=== PATIENT | female | born 1985 | race Caucasian/White ===

== ENCOUNTER 2017-04-05 08:44 | Emergency (ER) | payer OTHER ==
[~2017-04-05] VITALS: Ht 162.6 cm; Wt 81.2 kg
[~2017-04-05 08:44] MED LIST: ALBU18HF INH; ARIP5TAB5 PO; LORA-302 PO; VENL75CA PO; VENL75CA95 PO
[2017-04-05 08:56] VITALS: BP 145/103; PULSE 96; RESP 18; O2SAT 97
--- NOTE | 2017-04-05 09:06 | ED.REPORT ---
HPI-Psychiatric Illness Date of Service April 05, 2017 ED Provider: Pradip Scruggs MD Patient is a 31 year old female with a history of polysubstance abuse, depression, bipolar disorder and anxiety who presents to the ED due to depression. The patient reports she is currently out of Ativan and she normally takes it when she has episodes like these. Patient reports she has missed several appointments to get her prescription refilled. She denies suicidal ideations at this time but per the nurses notes had made suicidal comments earlier. The patient states that she hasn't been sleeping well because she has been living out of her car the past few weeks and she has had a decreased appetite. She states that her kids are with her mother because she "can't do this anymore". Patient reports that she is not currently using meth. Nursing Notes Stated Complaint: EMOTIONAL DISTRESS/ SUICIDAL Chief Complaint: Psychiatric Complaint Nursing Notes Reviewed: Yes (PlasmaSi,. meds not reconciled) Allergies: Coded Allergies: cetirizine (Verified Allergy, Severe, right side of body swells, 07/09/16) omeprazole (Verified Allergy, Intermediate, rash around stomach, 07/09/16) doxycycline (Verified Allergy, Unknown, 07/09/16) lithium (Verified Allergy, Unknown, 07/09/16) ranitidine (Verified Allergy, Unknown, edema face down to hip, 07/09/16) azithromycin (Verified Adverse Reaction, Severe, Diarrhea, 12/05/15) "severe diarrhea for a week that turned into intestinal infection" divalproex sodium (Verified Adverse Reaction, Severe, "psychotic, suicidal ", 12/05/15) erythromycin base (Verified Adverse Reaction, Severe, severe diarrhea, ) ziprasidone HCl (Verified Adverse Reaction, Severe, "psychotic, suicidal" , 12/05/15) zolpidem (Verified Adverse Reaction, Severe, "don't feel right", 11/16/15) Scheduled Aripiprazole (Abilify) 5 Mg Tablet 5 MG PO DAILY Aripiprazole (Abilify) 5 Mg Tablet 5 MG PO DAILY Venlafaxine ER (Effexor XR) 75 Mg Capsule 75 MG PO DAILY Venlafaxine ER (Venlafaxine ER) 75 Mg Cap.er.24h 75 MG PO DAILY Venlafaxine ER (Effexor XR) 75 Mg Capsule 75 MG PO DAILY Scheduled PRN Albuterol Sulfate (Ventolin HFA Inhaler) 200 Puff/18 Gm Inhaler 1 PUFF INH Q4 PRN PRN For Wheezing Lorazepam (Ativan) 0.5 Mg Tablet 0.5 MG PO TID PRN PRN For Anxiety or Agitation Lorazepam (Lorazepam) 0.5 Mg Tablet 0.5 MG PO BID PRN PRN For Anxiety General Time Seen by MD: 09:05 Chief Complaint Depressed Hx Obtained From: Patient Arrived By: Walk-in Context of Onset: Other (out of Ativan) Symptom Duration: Since onset Associated with: Reports: Anxiety Recent Healthcare: No recent doctor visit, No recent hospitalization Similar Sx Previous: Yes Risk-Psychiatric Illness Suicide Risk Stratification Suicide Risk Factors - Adult: : Prior psych admission (years ago): Substance abuse (relapse 2 weeks ago)No: Alcohol use RF Statements: Risk factors reviewed (but not predictive) Past Medical History Past Medical History Notes: Last [facility] admission 2008 for depressive disorder and polysubstance abuse Last ED visit June 2016 for depression and bipolar illness Past Medical History fibromyalgia h/o GERD h/o Interstitial cystitis h/o "Rheumatoid Arthritis" per EMR (not on PCP list of medical problems, not on medications) Depression Bipolar History of cervical intraepithelial neoplasia History of sleep apnea h/o migraines Past Surgical History Reports: Appendectomy Family History Noncontributory Smoking History Current Every Day Smoker Social History The EMR indicates previous history of polysubstance abuse including methamphetamines and cocaine hx homelessness Alcohol Use: "Social" Drug Use: Meth (has generally been clean past 1-2 years but reports relapsing ~ 2 weeks ago briefly), THC Other Social History: Good social support, Lives with children, Local resident Ambulatory Status Independent Review of Systems Review of Systems Note: decreased appetite Respiratory: Denies: Non-productive cough, Shortness of breath Psychiatric: Reports: Anxiety, Depression, Insomnia, Stress Complete sys rev & neg: except as marked. Physical Exam Initial Vital Signs Vital Signs (First) Date Time Temp Pulse Resp B/P Pulse Ox O2 Delivery O2 Flow Rate FiO2 04/05/17 08:56 37.0 96 18 145/103 97 Room Air Initial VS: Reviewed, Vital signs normal General/Constitutional: Awake, Alert does not appear intoxicated or in withdraw Neurologic: Oriented X3, Speech NL, No motor deficits, No sensory deficits Psychiatric: Not homicidal Abnormal Mood/Affect: Positive: Anxious, Depressed Abnormal Thinking / Perception: Positive: Insight abnormal, Judgment abnormal ( limited, but adequate (apparently made statements about SI, but states not actually SI, was upset)), Negative: Confused, Delusions - grandeur, Delusions - paranoid, Flight of ideas, Hallucinations, auditory, Hallucinations, tactile, Hallucinations, visual , Homicidal, no plan, Homicidal, with plan, Suicidal, no plan, Suicidal, with plan Tearful Head / Eyes: Atraumatic, Normocephalic, PERRL, EOMI Respiratory / Chest: Atraumatic, No respiratory distress Skin: Atraumatic, Color NL, No rash, Warm, Dry Upper Extremity / MS: Atraumatic, Full range of motion Interpretation & Diagnostics Lab Results Interpretation Test 04/05/17 09:25 Hold Urine Received (Received) Lab Results Interpretation: UA preg: negative Tox screen: positive for THC Re-Eval/Medical Decision Med Decision/Clinical Course This is a 31-year-old female for whom the initial report was that she was suicidal, but when I interview her she states she is not-she tells me that she has been under lots of stress recently, that usually she takes her medications which include Abilify, Effexor, and some when necessary lorazepam and that they usually help manage her symptoms, but that she missed her appointment with her PCP, and so is currently out of medications at the time of this increased stress. She apparently lives on the same property as her children who were apparently cared for bites of her guardians, and the patient is upset about her interaction with Family. However she adamantly denies any actual suicide that, she reports that she has had transient thoughts, but she does not have a plan, and that her actually she she just feels anxious and is out of her medicines. She does have a previous history of significant polysubstance abuse, and she admits that she had been doing quite well but did relapse several weeks ago and used meth, but reports no recent use in the past several days. She denies any homicidal ideation, she demonstrates no features to indicate imminent harm. She is tearful and has adequate but limited insight and judgment. He demonstrates no signs of a toxidrome, no signs of intoxication, no signs of withdrawal. I was able to access her old records from her PCP indicates she has generally been compliant, but she has been using lorazepam in very small amounts and is not taking it daily. I therefore gone ahead and written refills of her lorazepam, Effexor, and Abilify. The patient was seen by the DIRECTOR LEARNING SERVICES who agrees the patient does not meet criteria for hospitalization and provided some additional referral resources. The patient received a dose lorazepam in the department and is improved. She is discharged in improved condition. Routine precautions reviewed. Source of Hx: Old records Re-Evaluation/Progress : Time of Eval: 11:40 )( Re-Eval Psychiatric: No danger to self, No danger to others, No suicidal ideation Counseled Regarding: Diagnosis, Lab results, Need for follow-up, When/why to return to ED Discharge & Departure Impression: Primary Impression: Acute situational disturbance Additional Impressions: Medication refill Anxiety )( Condition at Discharge: No danger to self, No danger to others, No suicidal ideation Disposition: Home Discharge Condition All VS Reviewed: Yes Condition: Stable Additional Instructions: 1. I have written a refill for your lorazepam, Effexor, and Abilify. 2. You do still need to arrange a follow up with your primary care provider Dr. Coffey. 3. Continue to stay away from methamphetamines. 4. Use the Ativan (lorazepam) sparingly as before. Remember that it causes drowsiness. No driving for at least 4 hours after taking. 5. If you do develop suicidal ideation or thoughts of harming herself or others , please call the crisis line at or return to the emergency department 6. Follow up with the resources provided by the [employer] social [employer] tutor. Referrals: Theron Coffey MD (PCP) Grayson Attestation Portions of this note were transcribed by Elsie Zepeda. I, Dr. Scruggs personally performed the history, physical exam and medical decision-making; I reviewed and confirmed the accuracy of the information in the transcribed note. Signed by: Grayson Mak, 04/05/17 and 1000 copies to: Theron Coffey MD, Matthew F MD April 05, 2017 09:06 Adrienne Zepeda April 05, 2017 09:46
[2017-04-05] MEDS ORDERED: LORazepam 1 mg Tablet PO ONE ×2 (09:35→11:05)
[2017-04-05] MEDS ORDERED: VENL75CA PO (09:42)
[2017-04-05] MEDS ORDERED: LORA0.5T PO (09:42)
[2017-04-05] MEDS ORDERED: ARIP5TAB5 PO (09:42)
[2017-04-05 12:11] VITALS: BP 132/88; PULSE 88; RESP 16; O2SAT 98
== END 2017-04-05 12:13 | disposition home or self-care (01) ==
LOC: SED 08:44
DX: F43.0 Acute stress reaction (principal); F41.9 Anxiety disorder, unspecified; F31.9 Bipolar disorder, unspecified; F19.20 Other psychoactive substance dependence, uncomplicated; K21.9 Gastro-esophageal reflux disease without esophagitis; F17.200 Nicotine dependence, unspecified, uncomplicated; Z76.0 Encounter for issue of repeat prescription; Z88.8 Allergy status to other drugs, medicaments and biological substances; Z88.1 Allergy status to other antibiotic agents